=== PATIENT | female | born 1970 | race Caucasian/White ===

== ENCOUNTER 2018-04-03 23:31 | Emergency (ER) | payer OTHER ==
[~2018-04-03] VITALS: Ht 157.5 cm; Wt 49.0 kg
[2018-04-03] MEDS ORDERED: NKM (23:46)
[2018-04-04 00:03] VITALS: BP 128/88
[2018-04-04] MEDS ORDERED: NORCO 5-325 TA1 EACH ORAL (00:14)
[2018-04-04] MEDS ORDERED: ZOFRAN4 MG ORAL (00:14)
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
[2018-04-04] MEDS ORDERED: Norco 5mg/325mg tab ORAL ONE (00:15)
[2018-04-04 00:36] VITALS: BP 128/88
== END 2018-04-04 00:35 | disposition home or self-care (01) ==
LOC: EMR 23:50
DX: S06.0X0A Concussion without loss of consciousness, initial encounter (principal); Z88.0 Allergy status to penicillin; W22.03XA Walked into furniture, initial encounter; Y92.9 Unspecified place or not applicable
CPT/HCPCS: 99283